=== PATIENT | female | born 1950 | race Caucasian/White ===

== ENCOUNTER → 2020-04-25 | Outpatient (CLI) | payer OTHER | LOC: M LABSMTC 17:15 | PROVIDERS: ATTEND Pediatrics | DX: Z11.59 Encounter for screening for other viral diseases (principal) ==

== ENCOUNTER → 2024-01-26 | Outpatient (REF) | payer MEDICARE, OTHER ==
[~2024-01-26] MED LIST: ASPI81TA26 PO; CALC-356 PO; CEFD1CAP9 PO; CELE0.09 PO; CETI-24 PO; CILO100T3 PO; DICY-61 PO; GABA-282 PO; METO1TAB33 PO; RAMI1.258 PO; ROSU40TA81 PO; SYNT137T7 PO; VITA500C24 PO; VITATAB73 PO
== END ==
LOC: M SMT 12:25
PROVIDERS: ATTEND Physician Assistant
DX: N20.1 Calculus of ureter (principal)

== ENCOUNTER 2024-01-27 20:23 | Observation (INO) | payer MEDICARE, OTHER ==
[~2024-01-27] VITALS: Ht 172.7 cm; Wt 101.3 kg
[2024-01-28 01:18] LABS: HEMATOCRIT 39.4 % (36.0-47.0); HEMOGLOBIN 13.4 g/dl (12.0-15.5); MEAN CORPUSCULAR HEMOGLOBIN 29.7 pg (27.0-33.0); MEAN CORPUSCULAR VOLUME 87.4 fl (80.0-96.0); PLATELET COUNT, AUTOMATED 253 10^3/uL (150-450); RED BLOOD COUNT 4.51 10^6/uL (4.00-5.40); WHITE BLOOD COUNT 10.7 10^3/uL (4.0-10.0)
[2024-01-28 01:29] LABS: INR 1.06; PARTIAL THROMBOPLASTIN TIME 26.3 SECONDS (24.8-34.2); PROTHROMBIN TIME 13.5 SECONDS (12.5-14.5)
[2024-01-28 01:43] LABS: BLOOD UREA NITROGEN 16 MG/DL (9-23); CALCIUM LEVEL 9.1 MG/DL (8.3-10.6); CARBON DIOXIDE LEVEL 29 MMOL/L (20-31); CHLORIDE LEVEL 106 MMOL/L (98-107); CREATININE FOR GFR 0.77 MG/DL (0.55-1.30); GLOMERULAR FILTRATION RATE > 60.0 (>39); GLUCOSE, FASTING 95 MG/DL (74-106); POTASSIUM SERUM 3.6 MMOL/L (3.5-5.1); SODIUM LEVEL 140 MMOL/L (136-145)
[2024-01-28] MEDS ORDERED: ISOVUE-370 76% 100ML VIAL As Ordered ONE (05:16)
[2024-01-28] MEDS: PANTOPRAZOLE 40MG VIAL IV ONE (05:33)
[2024-01-28 05:39] LABS: BASO # 0.1 10^3/uL (0.0-0.2); BASO % 0.5 % (0.0-1.0); EOS # 0.2 10^3/uL (0.0-0.5); EOS % 2.3 % (0.0-3.0); HEMATOCRIT 36.2 % (36.0-47.0); HEMOGLOBIN 12.3 g/dl (12.0-15.5); LYMPH # 2.3 10^3/uL (1.5-5.0); LYMPH % 23.6 % (24.0-44.0); MEAN CORPUSCULAR HEMOGLOBIN 29.6 pg (27.0-33.0); MEAN CORPUSCULAR VOLUME 87.2 fl (80.0-96.0); MONO # 0.8 10^3/uL (0.0-0.8); MONO % 8.8 % (2.0-8.0); NEUTROPHILS # 6.2 10^3/uL (1.5-8.5); NEUTROPHILS % 64.5 % (36.0-66.0); PLATELET COUNT, AUTOMATED 240 10^3/uL (150-450); RED BLOOD COUNT 4.15 10^6/uL (4.00-5.40); WHITE BLOOD COUNT 9.5 10^3/uL (4.0-10.0)
[2024-01-28 05:55] LABS: LIPASE 37 U/L (12-53)
[2024-01-28 05:57] LABS: ALBUMIN 3.3 G/DL (3.2-5.2); ALKALINE PHOSPHATASE 66 U/L (46-116); ALT/SGPT 22 U/L (7.0-40); AST/SGOT 16 U/L (<34); BILIRUBIN,TOTAL 0.4 MG/DL (0.3-1.2); BLOOD UREA NITROGEN 14 MG/DL (9-23); CALCIUM LEVEL 9.4 MG/DL (8.3-10.6); CARBON DIOXIDE LEVEL 29 MMOL/L (20-31); CHLORIDE LEVEL 109 MMOL/L (98-107); CREATININE FOR GFR 0.64 MG/DL (0.55-1.30); GLOMERULAR FILTRATION RATE > 60.0 (>39); GLUCOSE, FASTING 97 MG/DL (74-106); POTASSIUM SERUM 3.7 MMOL/L (3.5-5.1); SODIUM LEVEL 143 MMOL/L (136-145); TOTAL PROTEIN 6.3 G/DL (5.7-8.2)
[2024-01-28] MEDS: LEVOTHYROXINE 137MCG TABLET (0.137MG) PO SCH (06:00)
[2024-01-28] MEDS: METOPROLOL SUCC (TopROL XL) 100MG *XL* TAB PO ONE (06:34)
[2024-01-28] MEDS: ramipriL 1.25 MG CAP PO ONE (06:34)
[2024-01-28] MEDS ORDERED: GABA-282 PO ×2 (07:10)
[2024-01-28] MEDS ORDERED: CETI-24 PO (07:10)
[2024-01-28] MEDS ORDERED: CELE0.09 PO (07:10)
[2024-01-28] MEDS ORDERED: METO1TAB33 PO (07:10)
[2024-01-28] MEDS ORDERED: CALC-356 PO (07:10)
[2024-01-28] MEDS ORDERED: CILO100T3 PO (07:10)
[2024-01-28] MEDS ORDERED: DICY-61 PO ×2 (07:10)
[2024-01-28] MEDS ORDERED: CEFD1CAP9 PO ×2 (07:10)
[2024-01-28] MEDS ORDERED: VITA500C24 PO (07:14)
[2024-01-28] MEDS ORDERED: RAMI1.258 PO (07:14)
[2024-01-28] MEDS ORDERED: VITATAB73 PO (07:14)
[2024-01-28] MEDS ORDERED: ROSU40TA81 PO (07:14)
[2024-01-28] MEDS ORDERED: SYNT137T7 PO (07:14)
[2024-01-28] MEDS ORDERED: ASPI81TA26 PO (07:14)
[2024-01-28] MEDS ORDERED: HOME MED LIST COMPLETE! XX SCH (07:15)
[2024-01-28] MEDS ORDERED: DICYCLOMINE 10 MG CAP PO PRN (08:55)
[2024-01-28] MEDS: METOPROLOL SUCC (TopROL XL) 100MG *XL* TAB PO SCH (09:00)
[2024-01-28] MEDS: CALCIUM CARBONATE 500 MG CHEW U/D PO ONE (09:43)
[2024-01-28] MEDS: ROSUVASTATIN 10 MG TAB (CRESTOR) PO SCH (09:43)
[2024-01-28] MEDS: ASCORBIC ACID 500 MG TAB PO SCH (09:44)
[2024-01-28] MEDS: DICYCLOMINE 10 MG CAP PO SCH (09:45)
[2024-01-28] MEDS: GABAPENTIN 300 MG CAP PO SCH ×2 (09:46→21:03)
[2024-01-28] MEDS: CEFDINIR 300 MG CAP (OMNICEF) PO SCH (09:59)
[2024-01-28] MEDS: VITAMIN B COMPLEX/VIT C CAP PO SCH (10:00)
[2024-01-28 12:07] LABS: HEMATOCRIT 36.6 % (36.0-47.0); HEMOGLOBIN 12.5 g/dl (12.0-15.5)
[2024-01-28 14:17] VITALS: BP 121/88; TEMP 97.3; O2SAT 97
[2024-01-28 18:43] LABS: HEMATOCRIT 36.3 % (36.0-47.0); HEMOGLOBIN 12.2 g/dl (12.0-15.5)
[2024-01-28 20:00] VITALS: BP 130/84; TEMP 97; O2SAT 94
[2024-01-28] MEDS: CETIRIZINE (ZyrTEC) 10 MG TAB PO SCH (21:03)
[2024-01-28] MEDS: ramipriL 1.25 MG CAP PO SCH (21:04)
[2024-01-29 01:07] LABS: HEMATOCRIT 36.5 % (36.0-47.0); HEMOGLOBIN 12.1 g/dl (12.0-15.5)
[2024-01-29 03:43] VITALS: BP 123/74; TEMP 97.5; O2SAT 94
[2024-01-29 06:37] LABS: HEMATOCRIT 36.9 % (36.0-47.0); HEMOGLOBIN 12.1 g/dl (12.0-15.5); MEAN CORPUSCULAR HGB CONC 32.8 g/dl (32.0-36.5); MEAN CORPUSCULAR VOLUME 88.5 fl (80.0-96.0); PLATELET COUNT, AUTOMATED 242 10^3/uL (150-450); RED BLOOD COUNT 4.17 10^6/uL (4.00-5.40); WHITE BLOOD COUNT 9.2 10^3/uL (4.0-10.0)
[2024-01-29 07:08] LABS: BLOOD UREA NITROGEN 11 MG/DL (9-23); CALCIUM LEVEL 9.5 MG/DL (8.3-10.6); CARBON DIOXIDE LEVEL 32 MMOL/L (20-31); CHLORIDE LEVEL 109 MMOL/L (98-107); CREATININE FOR GFR 0.71 MG/DL (0.55-1.30); GLOMERULAR FILTRATION RATE > 60.0 (>39); GLUCOSE, FASTING 87 MG/DL (74-106); SODIUM LEVEL 143 MMOL/L (136-145)
[2024-01-29 08:12] VITALS: BP 128/73; TEMP 97.3; O2SAT 95
[2024-01-29] MEDS: PANTOPRAZOLE 40MG VIAL IV SCH (08:22)
[2024-01-29] MEDS: ACETAMINOPHEN 500 MG TAB PO PRN (09:50)
[2024-01-29] MEDS: LEVOTHYROXINE 137MCG TABLET (0.137MG) PO ONE (11:32)
[2024-01-29 12:00] VITALS: BP 122/61; TEMP 98.5; O2SAT 95
[2024-01-29 20:00] VITALS: BP 115/83; TEMP 97.5; O2SAT 94
[2024-01-30 04:00] VITALS: BP 139/49; TEMP 97; O2SAT 94
[2024-01-30 05:51] LABS: HEMATOCRIT 37.4 % (36.0-47.0); HEMOGLOBIN 12.2 g/dl (12.0-15.5); MEAN CORPUSCULAR HEMOGLOBIN 29.1 pg (27.0-33.0); MEAN CORPUSCULAR HGB CONC 32.6 g/dl (32.0-36.5); MEAN CORPUSCULAR VOLUME 89.3 fl (80.0-96.0); PLATELET COUNT, AUTOMATED 233 10^3/uL (150-450); RED BLOOD COUNT 4.19 10^6/uL (4.00-5.40); WHITE BLOOD COUNT 8.3 10^3/uL (4.0-10.0)
[2024-01-30 06:16] LABS: BLOOD UREA NITROGEN 9 MG/DL (9-23); CALCIUM LEVEL 9.3 MG/DL (8.3-10.6); CARBON DIOXIDE LEVEL 30 MMOL/L (20-31); CHLORIDE LEVEL 106 MMOL/L (98-107); CREATININE FOR GFR 0.76 MG/DL (0.55-1.30); GLOMERULAR FILTRATION RATE > 60.0 (>39); GLUCOSE, FASTING 88 MG/DL (74-106); POTASSIUM SERUM 3.4 MMOL/L (3.5-5.1); SODIUM LEVEL 141 MMOL/L (136-145)
[2024-01-30 09:00] VITALS: BP 136/73
[2024-01-30 12:00] VITALS: BP 137/74; TEMP 97.3; O2SAT 95
== END 2024-01-30 15:39 | disposition home or self-care (01) ==
LOC: M ED 20:23 → INTOOBSV 01-28 08:53 → M ED INP 01-28 08:53 → M MSPAV 01-28 14:06
PROVIDERS: ADMIT Internal Medicine; ATTEND Internal Medicine
DX: K62.5 Hemorrhage of anus and rectum (principal); N20.1 Calculus of ureter; I10 Essential (primary) hypertension; M19.90 Unspecified osteoarthritis, unspecified site; E03.9 Hypothyroidism, unspecified; I73.9 Peripheral vascular disease, unspecified; K58.8 Other irritable bowel syndrome; Z79.82 Long term (current) use of aspirin; Z79.2 Long term (current) use of antibiotics; Z79.899 Other long term (current) drug therapy; Z88.0 Allergy status to penicillin
CPT/HCPCS: 36415; 74174; 80048; 80053; 83605; 83690; 85014; 85018; 85025; 85027; 85610; 85730; 86850; 86900; 86901; 93005; 96374; 96376; 99285; G0378; J2470; Q9967

== ENCOUNTER 2024-02-23 07:56 | Day surgery (SDC) | payer MEDICARE, OTHER ==
[~2024-02-23] VITALS: Ht 172.7 cm; Wt 98.1 kg
[~2024-02-23 07:56] MED LIST changes: +FLOM0.4C39 PO; +GABA-1172 PO; -GABA-282 PO; +OMEP40CA5 PO; +ONDA-282 PO
[2024-02-23] MEDS ORDERED: LIDOCAINE 2% 100MG/5ML SDV (FOR ANES.) As Ordered ONE (08:17)
[2024-02-23] MEDS ORDERED: propofoL 200 MG/20 ML VIAL As Ordered ONE (08:17)
[2024-02-23] MEDS ORDERED: fentaNYL 100 MCG/2 ML INJECTION As Ordered ONE (08:17)
[2024-02-23] MEDS ORDERED: ACETAMINOPHEN 1000MG 100ML IV BAG As Ordered ONE (08:17)
[2024-02-23] MEDS ORDERED: ONDANSETRON 4MG 2ML VIAL As Ordered ONE (08:17)
[2024-02-23] MEDS ORDERED: LR 1,000 ML IV SCH ×2 (08:30→10:25)
[2024-02-23] MEDS: ceFAZolin SOD 2 GM in IV 1 EA IV ONE (09:05)
[2024-02-23] MEDS: ISOVUE-300 61% 100ML VIAL As Ordered ONE (09:18)
[2024-02-23] MEDS ORDERED: HYDROMORPHONE HCL 0.5 MG/ 0.5 ML SYRINGE IV PRN (10:25)
[2024-02-23] MEDS ORDERED: fentaNYL 100 MCG/2 ML INJECTION IV PRN (10:25)
[2024-02-23] MEDS ORDERED: ONDANSETRON 4MG 2ML VIAL IV PRN (10:25)
[2024-02-23] MEDS ORDERED: oxyCODONE 5MG TAB PO PRN (10:25)
[2024-02-23] MEDS ORDERED: PERCOCET 5MG/325MG TAB PO PRN (11:00)
[2024-02-23 11:25] VITALS: BP 150/66; TEMP 97.1; O2SAT 98
== END 2024-02-23 12:16 | disposition home or self-care (01) ==
LOC: M SDC 07:56
PROVIDERS: ATTEND Urology
DX: N20.1 Calculus of ureter (principal); R94.31 Abnormal electrocardiogram [ECG] [EKG]; I10 Essential (primary) hypertension; E03.9 Hypothyroidism, unspecified; K57.92 Diverticulitis of intestine, part unspecified, without perforation or abscess without bleeding; K58.8 Other irritable bowel syndrome; K21.9 Gastro-esophageal reflux disease without esophagitis; Z88.0 Allergy status to penicillin; Z79.899 Other long term (current) drug therapy
CPT/HCPCS: 52352; 52356; 76000; 82365; C1769; C1894; C2617; J0131; J0690; J1100; J2405; J3010; Q9967

== ENCOUNTER 2024-05-14 07:10 | Day surgery (SDC) | payer MEDICARE, OTHER ==
[~2024-05-14] VITALS: Ht 172.7 cm; Wt 95.7 kg
[~2024-05-14 07:10] MED LIST changes: +BAYE81TA10 PO; +CHRO1000 PO; +FLAX1CAP5 PO; +FLON1SPR; +GLUCTAB64 PO; +GUAI20TA PO; +GUAI400T9 PO; +LOPE1CAP5 PO; +RA B1TAB2 PO; +SELE200T10 PO; +SYNT112T2 PO; +[UNRECOGNIZED DRUG - CODE] PO
[2024-05-14] MEDS ORDERED: LIDOCAINE 2% 100MG/5ML SDV (FOR ANES.) As Ordered ONE (08:06)
[2024-05-14] MEDS ORDERED: propofoL 200 MG/20 ML VIAL As Ordered ONE (08:06)
[2024-05-14 08:50] VITALS: BP 117/65; O2SAT 96
== END 2024-05-14 08:59 | disposition home or self-care (01) ==
LOC: M OPP 07:10
PROVIDERS: ATTEND Surgery
DX: K57.30 Diverticulosis of large intestine without perforation or abscess without bleeding (principal); K92.1 Melena; E78.5 Hyperlipidemia, unspecified; E03.9 Hypothyroidism, unspecified; K58.9 Irritable bowel syndrome, unspecified; K21.9 Gastro-esophageal reflux disease without esophagitis; M19.90 Unspecified osteoarthritis, unspecified site; Z87.891 Personal history of nicotine dependence; Z88.0 Allergy status to penicillin; Z79.51 Long term (current) use of inhaled steroids; Z79.82 Long term (current) use of aspirin; Z79.890 Hormone replacement therapy; Z79.899 Other long term (current) drug therapy